=== PATIENT | female | born 2000 | race Two or more races ===

== ENCOUNTER 2020-10-06 06:05 | Emergency (ER) | payer SELFPAY ==
[~2020-10-06] VITALS: Ht 157.5 cm; Wt 61.2 kg
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
--- NOTE | 2020-10-06 06:54 | NUR ---
RAD AT BEDSIDE
[2020-10-06] MEDS ORDERED: IBUPROFEN 600 MG TABLET ONE (07:26)
[2020-10-06] MEDS ORDERED: IBUPROFEN 600 MG TABLET PO ONE (07:30)
[2020-10-06] MEDS ORDERED: IBUP-1955 PO (07:30)
[2020-10-06 07:34] VITALS: BP 114/77
--- NOTE | 2020-10-06 07:34 | NUR ---
Patient discharged to home in stable condition. Written and verbal after care instructions given. Patient verbalizes understanding of instruction.
== END 2020-10-06 07:34 | disposition home or self-care (01) ==
LOC: ER 06:07
DX: S80.11XA Contusion of right lower leg, initial encounter (principal); S09.8XXA Other specified injuries of head, initial encounter; V49.59XA Passenger injured in collision with other motor vehicles in traffic accident, initial encounter; Y93.89 Activity, other specified; Y92.413 State road as the place of occurrence of the external cause; Y99.8 Other external cause status
CPT/HCPCS: 73552